=== PATIENT | female | born 1975 | race African-American/Black ===

== ENCOUNTER 2018-11-09 01:54 | Emergency (ER) | payer SELFPAY ==
[~2018-11-09] VITALS: Ht 170.2 cm; Wt 84.0 kg
[2018-11-09 02:28] VITALS: BP 129/77
== END 2018-11-09 04:09 | disposition left against medical advice (07) ==
LOC: ER 02:38
DX: Z53.21 Procedure and treatment not carried out due to patient leaving prior to being seen by health care provider (principal)